=== PATIENT | male | born 1945 | race Caucasian/White ===

== ENCOUNTER 2018-08-16 05:48 | Day surgery (SDC) | payer MEDICARE ==
--- NOTE | 2018-08-09 02:20 | HP ---
CC: Dr. Tinoco * HISTORY AND PHYSICAL: DATE OF PLANNED ADMISSION AND SURGERY: 08/16/18 HISTORY OF PRESENT ILLNESS: Mr. Higgins is a 73-year-old white male who is admitted with a symptomatic left hydrocele for surgical repair. I saw Mr. Higgins about 9 months ago because of left scrotal swelling. At that time he had a workup and was noted to have a left hydrocele and moderate size left varicocele. Because the patient was not symptomatic it was decided to observe the condition. He presented recently with increasing size of the left scrotal swelling and increasing discomfort in the left scrotal and left inguinal areas interfering with his physical activities. Because of the above history and findings and the symptomatic nature of the hydrocele, he is admitted for left hydrocelectomy. Past history is otherwise negative. No history of any renal diseases or calculi. There is no history of any inguinal or scrotal trauma or surgery. He has no voiding symptoms. His PSA last month was normal at 0.5. PAST MEDICAL HISTORY AND SYSTEM REVIEW: He was recently noted to have a cardiac murmur. He had an echocardiogram which was within normal. I am including a copy of the echocardiogram report in his records. MEDICATIONS: 1. The patient is hypertensive and maintained on Zestoretic 20/12.5 mg daily. 2. He is on fish oil. He is on no other chronic medications. ALLERGIES: He denies any allergies to medications. FAMILY HISTORY: Negative for prostate carcinoma. PERSONAL HISTORY: He is a nonsmoker. PHYSICAL EXAMINATION GENERAL: Pleasant and healthy-looking white male, who looks good for his age. VITAL SIGNS: Blood pressure 130/84. LUNGS: Clear. HEART: Regular and rhythmic. No murmurs. ABDOMEN: Soft. No masses, no tenderness and no CVA tenderness. EXTERNAL GENITALIA: There is an 10 cm, slightly tender left transilluminating swelling consistent with hydrocele. No inguinal hernias noted. The right testis feels normal. RECTAL: Exam earlier this year had shown a slightly enlarged but nonsuspicious prostate. IMPRESSION: Symptomatic left hydrocele. PLAN: Plan is for left hydrocelectomy. I discussed the operation in detail with the patient. Some of the potential complications including infection and hematoma were discussed. The patient understands that it is common to have a prolonged scrotal swelling from edema that might take several weeks to resolve. All his questions were answered. [id number]/[facility] #: [id number] TOBIN
[2018-08-16] MEDS ORDERED: Lactated Ringers 1000 ML Bag* 1,000 ML IV SCH ×2 (06:00)
[2018-08-16] MEDS ORDERED: Sodium Citrate/Citric Acid* 15 ML UDC PO ONE (06:00)
[2018-08-16] MEDS ORDERED: Buffered Lidocaine 0.9% SYRIN* 5 ML/SYR SYRINGE INTRADERM ONE ×2 (06:00)
[2018-08-16] MEDS ORDERED: ceFAZolin 2 GM PREMIX in ORs 2 GM/50 ML BAG IVPB ONE (06:15)
[2018-08-16] MEDS ORDERED: Sodium Citrate/Citric Acid* 15 ML UDC ONE (06:15)
[2018-08-16] MEDS ORDERED: Bupivacaine 0.5%* 50 ML VIAL ONE (06:47)
[2018-08-16] MEDS ORDERED: Propofol* 10 MG/ML 20 ML BTL ONE (07:27)
[2018-08-16] MEDS ORDERED: Lidocaine 2% PF * 5 ML VIAL ONE (07:28)
[2018-08-16] MEDS ORDERED: Midazolam* 1 MG/ML 2 ML VIAL (2 MG) ONE (07:29)
[2018-08-16] MEDS ORDERED: fentaNYL* 50 MCG/ML 2 ML VIAL (100 MCG VIAL) ONE (07:29)
[2018-08-16] MEDS ORDERED: Ondansetron INJ* 2 MG/ML VIAL IV PRN (07:32)
[2018-08-16] MEDS ORDERED: Naloxone* 0.4 MG/ML 1 ML VIAL IV PRN (07:32)
[2018-08-16] MEDS ORDERED: fentaNYL* 50 MCG/ML 2 ML VIAL (100 MCG VIAL) IV PRN (07:32)
[2018-08-16] MEDS ORDERED: hydrALAZINE IV* 20 MG/ML VIAL ONE (09:33)
[2018-08-16] MEDS ORDERED: Ibuprofen TAB* 400 MG ONE (09:57)
[2018-08-16] MEDS ORDERED: Lisinopril TAB* 10 MG PO ONE (10:00)
--- NOTE | 2018-08-16 11:03 | OP ---
CC: Dr. Kenn Tinoco OPERATIVE REPORT: DATE OF OPERATION: 08/16/18 DATE OF : 47 SURGEON: Dr. Garcia. ANESTHESIOLOGIST: Dr. Manuel Altamirano. ANESTHESIA: General. PRE-OP DIAGNOSIS: Left hydrocele. POST-OP DIAGNOSIS: Multiple left spermatoceles. OPERATIVE PROCEDURE: 1. Left scrotal exploration. 2. Excision of left spermatoceles. INDICATION FOR PROCEDURE: Mr. Higgins is a 73-year-old white male who presented with left scrotal swelling. He had a scrotal ultrasound, which showed a hydrocele. The patient was managed conservatively initially, but recently, he became more symptomatic and wanted to proceed with surgical excision. PATHOLOGY: Upon left scrotal exploration, there was a small hydrocele. Most of the swelling was arising from three spermatoceles each measuring about 5 cm in diameter. The testicle looked normal. The spermatic vessels were stretched along the posterior aspect of one of the spermatoceles. DESCRIPTION OF PROCEDURE: After successful general anesthesia, the patient was placed in the supine position and was prepped and draped for a scrotal incision. A transverse incision was carried in the mid anterior left hemiscrotum. This was deepened through the dartos muscle. The tunica vaginalis was identified and was dissected from the overlying scrotal wall and was delivered through the incision. The tunica vaginalis was then opened and the pathology of the multiple spermatoceles were noted. The spermatic vessels were identified, carefully dissected, and retracted and preserved. The spermatoceles were then dissected each one separately, all the way to their origin from the testis or the epididymis. The spermatocele that was adherent to the tunica albuginea was dissected and was punctured, then removed and peeled off the tunica. The other spermatoceles were similarly dissected and excised. Good hemostasis was archived. The tunica vaginalis was then everted and approximated to itself covering the raw area of the spermatic cord and approximated with interrupted sutures of 4-0 Vicryl. At the end of the procedure, there was very good hemostasis. There were no residual spermatoceles. The testis looked pink and all the spermatic vessels were intact. A small Monik drain was placed in the scrotal cavity and brought out through the lower aspect of the scrotum through the separate incision. The testis was replaced in the scrotal cavity. The wound was irrigated with saline. The scrotal incision was closed using running 4-0 Vicryl for the dartos muscle and the skin was closed using interrupted sutures of 4-0 chromic. A total of 8 cc of 0.5% Marcaine was infiltrated in the incision for post op analgesia. The Monik drain was transfixed to the skin with a 3-0 Prolene suture. The patient tolerated the procedure well and left the operating room in good condition. BLOOD LOSS: The blood loss was negligible. SPECIMEN: The specimen was spermatoceles. COUNTS: All the counts were correct. [id number]/[facility] #: [id number] MTDD
== END 2018-08-16 12:19 | disposition home or self-care (01) ==
LOC: OR 05:48
PROVIDERS: ATTEND Urology
DX: N43.42 Spermatocele of epididymis, multiple (principal); I10 Essential (primary) hypertension; R01.1 Cardiac murmur, unspecified
CPT/HCPCS: 88302; A9270-GY; J0360; J0690; J2250; J2704; J3010